=== PATIENT | male | born 1980 | race Caucasian/White ===

== ENCOUNTER 2018-06-13 09:05 | Outpatient (CLI) | payer OTHER ==
--- NOTE | 2018-06-13 15:16 | MRI Report ---
Reason: PAIN IN RIGHT SHOULDER Procedure Date: 06/13/2018 Accession Number: [id number] / [id number] Procedure: MRI - Shoulder RT W/O CPT Code: FULL RESULT: EXAM: RIGHT SHOULDER MRI WITHOUT CONTRAST EXAM DATE: 06/13/2018 10:00 AM. CLINICAL HISTORY: Pain in right shoulder. COMPARISON: None. TECHNIQUE: Multiplanar, multisequence T1-weighted and fluid-sensitive sequences of the shoulder without contrast. Other: None. FINDINGS: Acromioclavicular Region: The acromion is type II unipartite undersurface shape. Moderate AC joint osteoarthritic change. The coracoacromial and coracoclavicular ligaments are intact. Trace amount of bursal fluid. Glenohumeral Region: No subluxation. No effusion or loose bodies. The articular cartilage is unremarkable. The glenohumeral ligaments and joint capsule are unremarkable. Bone Marrow: No fracture, marrow edema or bone lesions. Labrum: The labrum is unremarkable on this nonarthrographic study. Musculature/Rotator Cuff: Supraspinatus and infraspinatus tendons are somewhat thickened with mild increased T2 signal. There is a tiny undersurface focus of increased T2 signal at the distal infraspinatus attachment, series 701 image 19. This involves about one-third of the distal tendon thickness. Also, some subscapularis thickening and increased T2 signal is present without partial-thickness or full-thickness tears. Teres minor is unremarkable. Biceps Tendon: The long head of the biceps tendon and biceps beti are intact. Other: The subcutaneous tissues are unremarkable. IMPRESSION: 1. Type II unipartite undersurface osseous acromion shape. Moderate AC joint osteoarthritic change. Trace amount of bursal fluid is seen. 2. Labrum, capsular structures and the long head of biceps appear unremarkable. 3. Some tendinitis at the supraspinatus and infraspinatus portions of the rotator cuff. Small undersurface partial-thickness tear distal infraspinatus involves about one-third of the distal tendon thickness. Some mild tendinopathy/tendinitis at the subscapularis as well. [facility] MUSCULOSKELETAL RADIOLOGY SECTION
== END 2018-06-13 09:06 | disposition home or self-care (01) ==
LOC: DI 09:05
PROVIDERS: ATTEND General Practice
DX: M19.011 Primary osteoarthritis, right shoulder (principal); M75.91 Shoulder lesion, unspecified, right shoulder; M75.101 Unspecified rotator cuff tear or rupture of right shoulder, not specified as traumatic